=== PATIENT | female | born 1980 | race African-American/Black ===

== ENCOUNTER 2017-07-03 14:06 | Emergency (ER) | payer MEDICAID ==
[2017-07-03 14:31] VITALS: BP 147/84
[2017-07-03 15:28] LABS: ABSOLUTE EOSINOPHILS # (AUTO) 0.2 10^3/uL (0.0-0.6); ABSOLUTE MONOCYTES (AUTO) 0.5 10^3/uL (0.1-1.4); ABSOLUTE NEUT (AUTO) 3.9 10^3/uL (1.7-8.2); APPEARANCE,URINE CLOUDY; BASOPHILS % (AUTO) 0.5 % (0-2); BILIRUBIN,URINE NEGATIVE (NEGATIVE); COLOR,URINE YELLOW; EOSINOPHILS % (AUTO) 3.6 % (0-6); GLUCOSE, URINE NEGATIVE (NEGATIVE); HEMATOCRIT 40.6 % (36.0-47.0); HEMOGLOBIN 13.4 g/dL (12.0-15.5); KETONES,URINE NEGATIVE (NEGATIVE); LEUKOCYTE ESTERASE,URINE NEGATIVE (NEGATIVE); LYMPHOCYTES % (AUTO) 29.8 % (13-45); MEAN CORPUSCULAR HEMOGLOBIN 27.1 pg (27.0-33.4); MEAN CORPUSCULAR HGB CONC 32.9 g/dL (32.0-36.0); MEAN CORPUSCULAR VOLUME 82 fl (80-97); MONOCYTES % (AUTO) 7.7 % (3-13); NITRITE,URINE NEGATIVE (NEGATIVE); PLATELET COUNT 304 10^3/uL (150-450); PROTEIN,URINE NEGATIVE (NEGATIVE); RED BLOOD COUNT 4.93 10^6/uL (3.72-5.28); RED CELL DISTRIBUTION WIDTH 13.9 % (11.5-14.0); SEGMENTED NEUTROPHILS % (AUTO) 58.4 % (42-78); TOTAL CELLS COUNTED % (AUTO) 100 %; URINE SPECIFIC GRAVITY 1.004; UROBILINOGEN,URINE NEGATIVE mg/dL (<2.0); WHITE BLOOD COUNT 6.6 10^3/uL (4.0-10.5)
[2017-07-03 15:39] LABS: ALANINE AMINOTRANSFERASE 37 U/L (9-52); ALBUMIN 4.3 g/dL (3.5-5.0); ALKALINE PHOSPHATASE 92 U/L (38-126); ANION GAP 12 (5-19); ASPARTATE AMINO TRANSFERASE 21 U/L (14-36); BILIRUBIN,DIRECT 0.1 mg/dL (0.0-0.4); BILIRUBIN,TOTAL 0.2 mg/dL (0.2-1.3); BLOOD UREA NITROGEN 10 mg/dL (7-20); CALCIUM 10.2 mg/dL (8.4-10.2); CARBON DIOXIDE 26 mmol/L (22-30); CHLORIDE 103 mmol/L (98-107); GLUCOSE 92 mg/dL (75-110); POTASSIUM 4.2 mmol/L (3.6-5.0); SODIUM 140.5 mmol/L (137-145); TOTAL PROTEIN 7.1 g/dL (6.3-8.2)
--- NOTE | 2017-07-03 16:06 | ER Document Report ---
ED Cardiac - General Chief Complaint: Chest Pain Stated Complaint: CHEST PAIN Time Seen by Provider: 07/03/17 15:02 Mode of Arrival: Ambulatory Information source: Patient Notes: Patient reports approximate 3 days of chest pain. She states it is a "fluttering". It lasts for a few seconds at a time. It does not radiate. Nothing makes it better or worse. It is mild. He denies any other significant associated symptoms such as shortness of breath or nausea. She does smoke but uses no type of control pills or hormones. No previous history of cardiac disease. She denies any type of cough cold or congestion. No radiation of the symptoms. TRAVEL OUTSIDE OF THE [place] IN LAST 30 DAYS: No - Related Data Allergies/Adverse Reactions: No Known Allergies Allergy (Verified 07/03/17 14:20) Past Medical History - General Information source: Patient - Social History Smoking Status: Current Every Day Smoker Frequency of alcohol use: Occasional Drug Abuse: None Family History: Reviewed & Not Pertinent Patient has suicidal ideation: No Patient has homicidal ideation: No Renal/ Medical History: Denies: Hx Peritoneal Dialysis - Immunizations Hx Diphtheria, Pertussis, Tetanus Vaccination: Yes Review of Systems - Review of Systems Constitutional: denies: Chills, Fever Cardiovascular: Chest pain, Palpitations Respiratory: denies: Cough, Short of breath -: Yes All other systems reviewed and negative Physical Exam - Vital signs Vitals: Temp Pulse BP Pulse Ox 98.0 F 91 147/84 H 99 07/03/17 14:30 07/03/17 14:30 07/03/17 14:30 07/03/17 14:30 Interpretation: Normal - General General appearance: Appears well, Alert - HEENT Head: Normocephalic, Atraumatic Eyes: Normal Pupils: PERRL - Respiratory Respiratory status: No respiratory distress Chest status: Nontender Breath sounds: Normal Chest palpation: Normal - Cardiovascular Rhythm: Regular Heart sounds: Normal auscultation Murmur: No - Abdominal Inspection: Normal Distension: No distension Bowel sounds: Normal Tenderness: Nontender Organomegaly: No organomegaly - Back Back: Normal, Nontender - Extremities General upper extremity: Normal inspection, Nontender, Normal color, Normal ROM , Normal temperature General lower extremity: Normal inspection, Nontender, Normal color, Normal ROM , Normal temperature, Normal weight bearing. No: Cristina's sign - Neurological Neuro grossly intact: Yes Cognition: Normal Orientation: AAOx4 Vinayak Coma Scale Eye Opening: Spontaneous Vinayak Coma Scale Verbal: Oriented [place] Coma Scale Motor: Obeys Commands [place] Coma Scale Total: 15 Speech: Normal Motor strength normal: LUE, RUE, LLE, RLE Sensory: Normal - Psychological Associated symptoms: Normal affect, Normal mood - Skin Skin Temperature: Warm Skin Moisture: Dry Skin Color: Normal Course - Vital Signs Vital signs: Temp Pulse Resp BP Pulse Ox 98.0 F 91 147/84 H 99 07/03/17 14:30 07/03/17 14:30 07/03/17 14:30 07/03/17 14:30 - Laboratory Result Diagrams: 07/03/17 15:12 07/03/17 15:12 Laboratory results interpreted by me: 07/03/17 15:12 Urine Blood LARGE H - Diagnostic Test Radiology reviewed: Image reviewed, Reports reviewed - EKG Interpretation by Me EKG shows normal: Sinus rhythm Rate: Normal Rhythm: NSR [place]/QRS: No: Right axis deviation, Left axis deviation Discharge - Discharge Clinical Impression: Chest pain Condition: Stable Disposition: HOME, SELF-CARE Instructions: Chest Pain of Unclear Cause ([facility]) Additional Instructions: Please call your doctor as soon as possible to discuss outpatient cardiac stress test. Forms: Return to Work
--- NOTE | 2017-07-03 22:07 | EKG REPORT ---
SEVERITY:- BORDERLINE ECG - SINUS RHYTHM PROBABLE LEFT ATRIAL ABNORMALITY BORDERLINE PROLONGED QT INTERVAL : Confirmed by: Amanda Paiz 03-Jul-2017 22:06:33
== END 2017-07-03 16:37 | disposition home or self-care (01) ==
LOC: ER 14:06
DX: R07.9 Chest pain, unspecified (principal); F17.200 Nicotine dependence, unspecified, uncomplicated
CPT/HCPCS: 36415; 80053; 81001; 81025; 84484; 85025; 93005; 93010; 99285

== ENCOUNTER → 2018-04-08 | Outpatient (CLI) | payer MEDICAID ==
--- NOTE | 2018-04-09 11:30 | RADIOLOGY REPORT (SQ) ---
EXAM DESCRIPTION: NM THYROID SCAN AND UPTAKE COMPLETED DATE/TIME: 04/09/2018 10:27 am REASON FOR STUDY: E05.90 THYROTOXICOSIS, UNSPECIFIED WITHOUT THYROTOXIC CRISIS OR STORM E05.90 THYR OTOXICOSIS, UNSP WITHOUT THYROTOXIC CRISIS OR STO COMPARISON: None. RADIONUCLIDE AND DOSE: 311 microcuries [id number] The route of agent administration: Oral ADDITIONAL DRUGS AND DOSES: None. TECHNIQUE: Iodine uptake was measured at 4 and 24 hours. Images of the neck were acquired. LIMITATIONS: None. FINDINGS: 4 HOUR UPTAKE RADIO-IODINE: 21.5%. Normal Range of 5-20% [facility] Normal Range of 5-15% [facility] Normal Range of 5-15% [facility] 24 HOUR UPTAKE RADIO-IODINE: 39.3%. Normal Range of 7-35% [facility] Normal Range of 8-35% [facility] Normal Range of 15-30% [facility] SCAN: There is a solitary area of tracer accumulation in the midline. There is no clinical history o f previous thyroid surgery. This may be related to a functioning nodule in the thyroid isthmus with suppression of the right and left thyroid lobes. This could also be related to ectopic thyroid tissu e with suppression of the normal thyroid gland. Other etiologies cannot be excluded however and a th yroid ultrasound may be of value for further evaluation OTHER: No other significant finding. IMPRESSION: Elevated 4 and 24 eye hour thyroid function studies as noted above consistent with hyper thyroidism. The thyroid scan demonstrates a solitary area tracer accumulation in the midline. With no history of previous thyroid surgery, this may be related to a functioning nodule in the thyroid isthmus with oneal ppression of the right and left thyroid lobes. This could also be related to ectopic thyroid tissue with suppression of the normal thyroid gland. Other etiologies cannot be excluded however and a thyr oid ultrasound may be helpful for further evaluation. Clinical correlation is recommended. TECHNICAL DOCUMENTATION: JOB ID: [id number] [employer]- All Rights Reserved Reading location - IP/workstation name: [email or web address]
== END ==
LOC: RAD 08:50
PROVIDERS: ATTEND Internal Medicine Endocrinology, Diabetes & Metabolism
DX: E05.90 Thyrotoxicosis, unspecified without thyrotoxic crisis or storm (principal)
CPT/HCPCS: 78014; A9516

== ENCOUNTER 2018-05-06 09:19 | Emergency (ER) | payer MEDICAID ==
[2018-05-06 09:30] VITALS: BP 138/86
--- NOTE | 2018-05-06 09:50 | ER Document Report ---
ED General - General Chief Complaint: Facial Swelling Stated Complaint: SWELLING ON RIGHT SIDE OF FACE Time Seen by Provider: 05/06/18 09:49 Notes: Patient is a 38-year-old female that presents to the emergency department for chief complaint of hives and facial swelling. Patient states she started having itching and hives 2 days ago, it was shortly after she had some unfiltered honey, she again had some of this last night in her tea, and then she noticed when she woke up this morning the right side of her face was swollen, which is unusual for her. She states that the hives seem to get worse as well so she decided come to the emergency department. She did not take any medication prior to ED arrival. She denied notice having any throat swelling, difficulty breathing, wheezing, shortness of breath, nausea, vomiting or abdominal pain. Past Medical History: Hypothyroidism Past Surgical History: Denies surgical history Social History: Admits to smoking cigarettes daily, and occasional alcohol use, denies illicit drug use. Family History: Reviewed and noncontributory for presenting illness Allergies: Reviewed, see documented allergy list. REVIEW OF SYSTEMS: Other than noted above, the 12 point review of systems was reviewed with the patient and were negative, all pertinent findings are included in the HPI. PHYSICAL EXAMINATION: Vital signs reviewed, nursing noted reviewed. GENERAL: Well-appearing, well-nourished and in no acute distress. HEAD: Atraumatic, normocephalic. EYES: Eyes appear normal, extraocular movements intact, sclera anicteric, conjunctiva are normal. ENT: nares patent, oropharynx clear without exudates. Moist mucous membranes. Mild right-sided facial swelling, no erythema, or tenderness to palpation, dentition appears normal, no dental abscess, uvula midline and nonedematous, tongue midline and nonedematous. NECK: Normal range of motion, supple without lymphadenopathy LUNGS: Breath sounds clear to auscultation bilaterally and equal. No wheezes rales or rhonchi. HEART: Regular rate and rhythm without murmurs ABDOMEN: Soft, nontender, normoactive bowel sounds. No rebound, guarding, or rigidity. No masses appreciated. EXTREMITIES: Nontender, good range of motion, no pitting or edema. NEUROLOGICAL: No focal neurological deficits. Moves all extremities spontaneously Motor and sensory grossly intact on exam. PSYCH: Normal mood, normal affect. SKIN: Warm, Dry, normal turgor, urticarial rash noted on the chest, back, and upper arms bilaterally TRAVEL OUTSIDE OF THE [place] IN LAST 30 DAYS: No - Related Data Allergies/Adverse Reactions: No Known Allergies Allergy (Verified 05/06/18 09:20) Past Medical History - Social History Smoking Status: Current Every Day Smoker Family History: Reviewed & Not Pertinent Renal/ Medical History: Denies: Hx Peritoneal Dialysis - Immunizations Hx Diphtheria, Pertussis, Tetanus Vaccination: Yes Physical Exam - Vital signs Vitals: Temp Pulse Resp BP Pulse Ox 99.1 F 96 18 138/86 H 100 05/06/18 09:25 05/06/18 09:25 05/06/18 09:25 05/06/18 09:25 05/06/18 09:25 Course - Re-evaluation Re-evalutation: Patient presents with symptoms consistent with an allergic reaction without anaphylaxis. Only cutaneous involvement with multiple areas of hives. Vitals otherwise within normal limits at time of arrival. No respiratory, GI, cardiovascular, or oral pharyngeal symptoms. A trial of epinephrine for symptom resolution was offered to the patient. This did resolve the majority of the patient's hives. Will recommend ongoing antihistamine therapy as an outpatient. At this time will discharge with return precautions and follow-up recommendation s. Verbal discharge instructions given a the bedside and opportunity for questions given. Medication warnings reviewed. Patient is in agreement with this plan and has verbalized understanding of return precautions and the need for primary care follow-up in the next 24-72 hours. Patient given a prescription for an EpiPen, advised not to take or eat anymore unfiltered honey, she is advised to avoid wasps, hornets and bees as well as fire ants, and also advised to take Benadryl at home, in the ED she is given a first dose of prednisone 60 mg, given 4 days worth with a prescription, and also she was given Claritin and Pepcid in the ED. Patient discharged to home, in stable condition. - Vital Signs Vital signs: Temp Pulse Resp BP Pulse Ox 99.1 F 96 18 138/86 H 100 05/06/18 09:25 05/06/18 09:25 05/06/18 09:25 05/06/18 09:25 05/06/18 09:25 Discharge - Discharge Clinical Impression: Urticaria Allergic reaction Qualifiers: Encounter type: initial encounter Qualified Code(s): T78.40XA - Allergy, unspecified, initial encounter Condition: Stable Disposition: HOME, SELF-CARE Instructions: Acute Allergic Reaction ([facility]) Additional Instructions: Please take [id number] Benadryl 1-2 capsules 3 times daily to help with her itching, please take the prescribed prednisone daily, starting tomorrow, and carry the EpiPen with you everywhere you go, if you develop a severe reaction, such as shortness of breath or feeling like you are going to pass out, after being exposed to bee stings, or fire ant bites. Prescriptions: Epinephrine [Epipen] 0.3 mg IJ PRN PRN #1 auto.injct PRN Reason: severe allergic reaction RX: Prednisone [Deltasone] 60 mg PO DAILY #12 tablet Referrals: KIANA SALAZAR MD [NO LOCAL MD] - Follow up in 3-5 days
[2018-05-06] MEDS ORDERED: PREDNISONE 20 MG TABLET PO ONE (10:06)
[2018-05-06] MEDS ORDERED: LORATADINE 10 MG TABLET PO ONE (10:06)
[2018-05-06] MEDS ORDERED: FAMOTIDINE 20 MG TABLET PO ONE (10:06)
== END 2018-05-06 10:20 | disposition home or self-care (01) ==
LOC: ER 09:19
DX: T78.40XA Allergy, unspecified, initial encounter (principal); X58.XXXA Exposure to other specified factors, initial encounter; L50.9 Urticaria, unspecified; F17.210 Nicotine dependence, cigarettes, uncomplicated
CPT/HCPCS: 99283; J3490 ×2; J7512

== ENCOUNTER 2018-05-27 20:55 | Emergency (ER) | payer MEDICAID ==
[2018-05-27 21:02] VITALS: BP 156/87
== END 2018-05-27 22:45 | disposition left against medical advice (07) ==
LOC: ER 20:55
DX: Z53.21 Procedure and treatment not carried out due to patient leaving prior to being seen by health care provider (principal); R22.0 Localized swelling, mass and lump, head